=== PATIENT | female | born 1965 | race Caucasian/White ===

== ENCOUNTER → 2021-10-26 | Outpatient (CLI) | payer OTHER ==
[~2021-10-26] MED LIST: NAPR500 PO
== END ==
LOC: LAB SHORT 13:41 → LAB 13:41
DX: N39.0 Urinary tract infection, site not specified (principal)
CPT/HCPCS: 87077; 87086; 87186

== ENCOUNTER 2022-03-14 06:48 | Day surgery (SDC) | payer OTHER ==
[~2022-03-14] VITALS: Ht 185.4 cm; Wt 82.7 kg
--- NOTE | 2022-03-14 07:24 | NUR ---
Ambulatory in Day Surgery History, Chart, Medications and Allergies reviewed before start of procedure. Pre-Op teaching done. Pt verbalizes understanding. Patient States Post-Procedure ride home has been arranged with .
--- NOTE | 2022-03-14 08:03 | NUR ---
03/14/22 0803 Jessica Dunn HISTORY, CHART, MEDICATIONS AND ALLERGIES REVIEWED BEFORE START OF PROCEDURE. PATIENT CONFIRMS NPO STATUS AND AGREES WITH SCHEDULED PROCEDURE. 3-LEAD EKG REVIEWED WITH PHYSICIAN PRIOR TO START OF PROCEDURE. MONITOR INTACT WITH CONTINUOUS PULSE OXIMETRY,CAPNOGRAPHY, 3-LEAD EKG, INTERMITTENT BP. SUPPLEMENTAL O2 TO BE TITRATED THROUGHOUT PROCEDURE TO MAINTAIN O2 SATURATION ABOVE 90%. PATIENT DETERMINED TO BE ASA APPROPRIATE FOR PROPOFOL SEDATION PRIOR TO START OF PROCEDURE BY DR. TRUJILLO
--- NOTE | 2022-03-14 09:12 | NUR ---
Ambulatory in Day Surgery. Discharge instructions reviewed with patient. Patient verbalizes understanding. Copy given to patient to take home. Discharged via wheelchair to private car for ride home. VSS.
== END 2022-03-14 23:16 | disposition home or self-care (01) ==
LOC: ORSCMMR 06:48 → ORD 08:15 → ORSCMMR 23:16
PROVIDERS: Internal Medicine Gastroenterology
PROC: 0DB58ZX Excision of Esophagus, Via Natural or Artificial Opening Endoscopic, Diagnostic (ICD-10-PCS; principal; 2022-03-14 08:15)
PROC: 0DB68ZX Excision of Stomach, Via Natural or Artificial Opening Endoscopic, Diagnostic (ICD-10-PCS; principal; 2022-03-14 08:15)
DX: R10.31 Right lower quadrant pain (principal); Z80.0 Family history of malignant neoplasm of digestive organs; K20.90 Esophagitis, unspecified without bleeding; Z86.010 Personal history of colon polyps; Z79.899 Other long term (current) drug therapy
CPT/HCPCS: 88305; 88342; J2704; J7120

== ENCOUNTER → 2023-07-29 | Outpatient (CLI) | payer OTHER ==
[2023-08-07 08:17] LABS: HPV GENOTYPE 16 Not Detected; HPV GENOTYPE 18 Not Detected; HPV HIGH RISK Not Detected; HPV SOURCE Cervical
== END | disposition home or self-care (01) ==
LOC: LAB 12:12 → LAB SHORT 12:12
PROVIDERS: Nurse Practitioner Family
DX: Z01.419 Encounter for gynecological examination (general) (routine) without abnormal findings (principal)
CPT/HCPCS: 87624; G0123

== ENCOUNTER → 2023-08-06 | Outpatient (CLI) | payer OTHER | LOC: LAB 15:25 → LAB SHORT 15:25 | DX: R30.0 Dysuria (principal) | CPT/HCPCS: 87077; 87086; 87186 ==